=== PATIENT | male | born 1950 | race Two or more races ===

== ENCOUNTER 2023-12-03 18:19 | Inpatient (IN) | payer MEDICARE, OTHER, SELFPAY ==
[2023-12-03] VITALS (9 sets, daily range): BP systolic 85–137; BP diastolic 52–85; PULSE 60–62
[2023-12-03 14:40] LABS: ALT (SGPT) 14 U/L (0-50); AST (SGOT) 23 U/L (17-59); Albumin 3.5 g/dl (3.5-5.0); Alkaline Phosphatase 91 U/L (38-126); Blood Urea Nitrogen 30 mg/dl (9-20); Calcium 9.1 mg/dl (8.4-10.2); Carbon Dioxide 27 mmol/L (22-30); Chloride 101 mmol/L (98-107); Glucose 136 mg/dl (70-99); Hemoglobin 13.6 g/dL (13.0-18.0); Mean Corpuscular Hgb 30.1 pg (27.0-31.0); Mean Corpuscular Volume 88.5 fL (80.0-94.0); Mean Platelet Volume 9.8 fL (7.4-10.4); Platelet Count 222 10^3/uL (130-400); Potassium 4.2 mmol/L (3.5-5.1); Red Blood Cell Count 4.52 10^6/uL (4.70-6.10); Red Cell Dist. Width 13.9 % (11.5-14.5); Sodium 135 mmol/L (135-145); Total Bilirubin 1.4 mg/dl (0.2-1.3); Total Protein 6.1 g/dl (6.3-8.2); White Blood Cell Count 26.9 10^3/uL (4.8-10.8); eGFR > 60.00
[2023-12-03 14:43] LABS: % Basophils 0.2 % (0-2); % Lymphocytes 4.3 % (20.5-51.1); % Monocytes 7.6 % (1.7-9.3); % Neutrophils 86.9 % (42.2-75.2); Absolute Basophils 0.1 10^3/uL (0-0.2); Absolute Immature Granulocytes 0.3 10^3/uL (0-0.05); Absolute Lymphocytes 1.2 10^3/uL (1.2-3.4); Absolute Neutrophils 23.4 10^3/uL (1.4-6.5); Nucleated Red Blood Cells % 0 % (-)
--- NOTE | 2023-12-03 15:08 | ED.GENMED ---
History of Present Illness
<Ilya Johnson DO - Last Filed: 12/03/23 15:08>
General
Chief Complaint: Blood Pressure Problem
Time Seen by Provider: 12/03/23 15:06
<Octavio Pete PA-C - Last Filed: 12/03/23 17:35>
General
Source: patient
History of Present Illness
History of Present Illness:
73-year-old male presenting to the emergency department from urgent care for evaluation of shortness of breath, at the urgent care was found to have a blood pressure of 84/52. Patient states that other than the shortness of breath he feels okay.
He denies any chest pain, palpitations, diaphoresis, exertional dyspnea, orthopnea, fevers/chills or rigors, urinary symptoms or bowel changes. He states that his blood pressure is always usually little on the lower side but is unable to quantify
the exact normal blood pressure. He notes that he lives on his own, has a history of throat/mouth cancer and diet consists of mainly a liquid and pur�ed diet but has been eating and drinking his usual amounts. He also states that he has been
recently going to a bariatric chamber for care from his mouth/throat cancer at the request of his oncology team. Currently not undergoing any chemo or radiation.
Past History
<Octavio Pete PA-C - Last Filed: 12/03/23 17:35>
Past History
ED Past Medical History: Cancer
ED Past Surgical History: Bowel resection, Cardiac and Other
Review of Systems
<Octavio Pete PA-C - Last Filed: 12/03/23 17:35>
Review of Systems
All Other Systems: ROS reviewed and negative except as documented in HPI and ROS
Phy Exam
<TRISTEN Millan Last Filed: 12/03/23 17:35>
Physical Exam
Physical Exam:
GENERAL: Alert , in no apparent distress
Vital signs: Blood pressure rechecked and it was 129/54 during my exam
EYE: clear conjunctiva b/l
HEAD: NCAT
ENT: mmm.
CARDIAC: Regular rate and rhythm, paced rhythm on telemetry.
LUNGS: Clear breath sounds bilaterally, no acute respiratory distress, no wheezes/rales/rhonchi
ABDOMEN: Soft, without focal tenderness, no r/g, no cvat
NEUROLOGICAL: Alert and oriented
SKIN: Warm and dry, skin intact.
MUSCULOSKELETAL: No edema, well perfused.
PSYCH: Normal and appropriate interaction.
Scores
<Octavio Pete PA-C - Last Filed: 12/03/23 17:35>
Heart Failure Risk
Heart Failure Risk Score: Not Applicable
Heart Score for Chest Pain Patients
STEMI patient?: Not applicable
Withdrawal Assessment of Alcohol
Withdrawal Assessment Completed?: Not applicable
Course
<Ilya Johnson DO - Last Filed: 12/03/23 15:08>
Orders/Labs/Results
Orders:
Orders
12/03/23 14:11
CMP [Comprehensive Metabolic Panel] Urgent
Complete Blood Count/With Diff Urgent
12/03/23 15:14
0.9% Sodium Chloride 1000 ml [Nss] 2,500 ml IV NOW STA
12/03/23 15:15
CR Chest - 2 Views Urgent
Comment:
Reason For Exam: SOB, leukocytosis
12/03/23 15:19
Electrocardiogram (*1) Urgent
Reason for Study: Shortness of Breath
EKG- Treatment ONCE
Orthostatic VS- Treatment ONCE
12/03/23 15:23
COVID-19 Antigen Urgent
Source: Nasal Swab
Lactic Acid Q4H
Comment: CANCEL 2nd LACTIC ACID IF 1st LACTIC ACID IS LESS THAN 2
Troponin I Urgent
Blood Culture Urgent
RELL Source: Blood/Venous
Specimen Description:
12/03/23 15:31
Blood Culture Routine
RELL Source: Blood/Venous
Specimen Description:
12/03/23 16:15
Urinalysis Reflex To Culture Urgent
Date Specimen was Collected: 12/03/23
Time Specimen was Collected: 16:14
Urine Microscopic Reflex Cult Urgent
Urine Culture Urgent
RELL Source: U
Specimen Description:
Date Specimen was Collected: 12/03/23
Time Specimen was Collected: 16:14
12/03/23 17:15
Cefepime HCl [Maxipime] 2,000 mg IV NOW STA
12/03/23 17:29
Gentamicin Sulfate [Gentamicin] 160 mg 0.9% Sodium Chloride [Nss] 50 ml IV NOW
12/03/23 19:15
Lactic Acid Q4H
Comment: CANCEL 2nd LACTIC ACID IF 1st LACTIC ACID IS LESS THAN 2
Abnormal Lab Results
12/03/23 12/03/23
14:11 16:15
WBC 26.9 H 10^3/uL
(4.8-10.8)
RBC 4.52 L 10^6/uL
(4.70-6.10)
Abs Immat Gran (auto) 0.3 H 10^3/uL
(0-0.05)
Absolute Neuts (auto) 23.4 H 10^3/uL
(1.4-6.5)
Absolute Monos (auto) 2.0 H 10^3/uL
(0.1-0.6)
Immature Gran % 1.0 H %
(0-0.5)
Neutrophils % 86.9 H %
(42.2-75.2)
Lymphocytes % 4.3 L %
(20.5-51.1)
BUN 30 H mg/dl
(9-20)
Glucose 136 H mg/dl
(70-99)
Total Bilirubin 1.4 H mg/dl
(0.2-1.3)
Total Protein 6.1 L g/dl
(6.3-8.2)
Leukocyte Esterase Rfl 2+ A
(Negative)
Urine WBC (Reflex) 50-60 A /HPF
(0-5)
Urine Bacteria (Reflex) Few A
(Negative)
12/03/23 14:11
12/03/23 14:11
Vital Signs
Initial and Last Documented VS:
Initial Vital Signs
Temp Pulse Resp BP Pulse Ox
98.6 F 69 16 106/57 98
12/03/23 14:02 12/03/23 14:02 12/03/23 14:02 12/03/23 14:02 12/03/23 14:02
Last Documented Vital Signs
Temp Pulse Resp BP Pulse Ox
98.6 F 64 16 117/85 97
12/03/23 14:02 12/03/23 17:00 12/03/23 17:00 12/03/23 17:00 12/03/23 16:00
<Octavio Pete PA-C - Last Filed: 12/03/23 17:35>
Orders/Labs/Results
Orders:
Orders
12/03/23 14:11
CMP [Comprehensive Metabolic Panel] Urgent
Complete Blood Count/With Diff Urgent
12/03/23 15:14
0.9% Sodium Chloride 1000 ml [Nss] 2,500 ml IV NOW STA
12/03/23 15:15
CR Chest - 2 Views Urgent
Comment:
Reason For Exam: SOB, leukocytosis
12/03/23 15:19
Electrocardiogram (*1) Urgent
Reason for Study: Shortness of Breath
EKG- Treatment ONCE
Orthostatic VS- Treatment ONCE
12/03/23 15:23
COVID-19 Antigen Urgent
Source: Nasal Swab
Lactic Acid Q4H
Comment: CANCEL 2nd LACTIC ACID IF 1st LACTIC ACID IS LESS THAN 2
Troponin I Urgent
Blood Culture Urgent
RELL Source: Blood/Venous
Specimen Description:
12/03/23 15:31
Blood Culture Routine
RELL Source: Blood/Venous
Specimen Description:
12/03/23 16:15
Urinalysis Reflex To Culture Urgent
Date Specimen was Collected: 12/03/23
Time Specimen was Collected: 16:14
Urine Microscopic Reflex Cult Urgent
Urine Culture Urgent
RELL Source: U
Specimen Description:
Date Specimen was Collected: 12/03/23
Time Specimen was Collected: 16:14
12/03/23 17:15
Cefepime HCl [Maxipime] 2,000 mg IV NOW STA
12/03/23 17:29
Gentamicin Sulfate [Gentamicin] 160 mg 0.9% Sodium Chloride [Nss] 50 ml IV NOW
12/03/23 19:15
Lactic Acid Q4H
Comment: CANCEL 2nd LACTIC ACID IF 1st LACTIC ACID IS LESS THAN 2
Abnormal Lab Results
12/03/23 12/03/23
14:11 16:15
WBC 26.9 H 10^3/uL
(4.8-10.8)
RBC 4.52 L 10^6/uL
(4.70-6.10)
Abs Immat Gran (auto) 0.3 H 10^3/uL
(0-0.05)
Absolute Neuts (auto) 23.4 H 10^3/uL
(1.4-6.5)
Absolute Monos (auto) 2.0 H 10^3/uL
(0.1-0.6)
Immature Gran % 1.0 H %
(0-0.5)
Neutrophils % 86.9 H %
(42.2-75.2)
Lymphocytes % 4.3 L %
(20.5-51.1)
BUN 30 H mg/dl
(9-20)
Glucose 136 H mg/dl
(70-99)
Total Bilirubin 1.4 H mg/dl
(0.2-1.3)
Total Protein 6.1 L g/dl
(6.3-8.2)
Leukocyte Esterase Rfl 2+ A
(Negative)
Urine WBC (Reflex) 50-60 A /HPF
(0-5)
Urine Bacteria (Reflex) Few A
(Negative)
12/03/23 14:11
12/03/23 14:11
Vital Signs
Initial and Last Documented VS:
Initial Vital Signs
Temp Pulse Resp BP Pulse Ox
98.6 F 69 16 106/57 98
12/03/23 14:02 12/03/23 14:02 12/03/23 14:02 12/03/23 14:02 12/03/23 14:02
Last Documented Vital Signs
Temp Pulse Resp BP Pulse Ox
98.6 F 64 16 117/85 97
12/03/23 14:02 12/03/23 17:00 12/03/23 17:00 12/03/23 17:00 12/03/23 16:00
<Octavio Pete PA-C - Last Filed: 12/03/23 17:35>
MDM/Problems Addressed
Differential Diagnosis Includes:
Pneumonia, sepsis, PE, atypical ACS
MDM/Problems Addressed:
73-year-old male presenting to the emergency department from urgent care for evaluation of shortness of breath, found to be hypotensive. On arrival here and in triage patient still has hypotension with a blood pressure 106/57. During my exam this
was improved and now at a normal level. Labs have been initiated in triage and patient has a leukocytosis of almost 27,000. Patient has no other labs from this facility previously so unclear as to if this is a chronic issue. Given his
leukocytosis combined with his reported hypotension we will add on blood cultures, lactic acid, EKG, troponin, chest x-ray, check orthostatics and treat with sepsis fluid bolus. Disposition pending but would lean towards admission
Chronic conditions affecting care: Cancer
<Octavio Pete PA-C - Last Filed: 12/03/23 17:35>
*Pulse Oximetry
Patient hypoxic: no
*EKG
Interpreted by ED Provider?: Yes
Comparison EKG: no comparison EKG present
Heart Rate: 61
Rate: normal
Rhythm: av sequential
*Binder Layer Interpretation
Rate: normal
Rhythm: ventricular paced
*Critical Care Note
Total Time (30-74mins, 75-104mins- exclusive of procedures): Not Applicable
<Octavio Pete PA-C - Last Filed: 12/03/23 17:35>
Patient Management
Discussion with other providers: Hospitalist
Escalation/DeEscalation of care consider admission/obs:
Leukocytosis and prerenal azotemia on initial labs. Patient's lactic acid 1.7. Urinalysis was noted for 2+ leukocytes and 50-60 WBCs. Chest x-ray unremarkable. Orthostatics noted for hypotension when going from laying to sitting. Patient did
receive sepsis fluid bolus. Given his leukocytosis with what appears to be an acute urinary tract infection will admit. Maxipime and gentamicin ordered. Hospitalist team accepts for continued evaluation and treatment.
ED Attending Note
<Ilya Johnson DO - Last Filed: 12/03/23 15:08>
-
Portions of this chart may have been created with voice recognition software.� Occasional wrong word or��sound alike� substitutions may have occurred due to the inherent limitations of voice recognition software.
Discharge Plan
Departure
Patient Disposition: Admit
Date of Disposition: 12/03/23
Time of Disposition: 17:16
Presentation/result/management discussed w/ accepting MD/DO: Hospitalist
Discharge Problem:
Acute UTI, Sepsis
Prescriptions:
No Action
ibuprofen 800 mg Tablet
800 mg PO TID
gabapentin 300 mg Capsule
300 mg PO TID
lidocaine HCl 2 % Solution
1 applic MUCOUS MEMBRANE BIDPRN PRN (Reason: mild pain)
ferrous sulfate tablet
1 tab PO BID
Patient Comments:
12/03/23: Patient was unsure of dosage.
Referrals:
Jhon Blas MD [Family Provider] -
Interventions
Interventions:
*Risk Screen - Suicide Last Done: 12/03/23 15:14
*General Assessment Last Done: 12/03/23 14:02
*Neglect/Abuse Screening Last Done: 12/03/23 15:14
*ED COVID-19 Vaccine History Last Done: 12/03/23 14:02
ED- Cardiac Assessment Last Done: 12/03/23 15:14
ED- Neurological Assessment Last Done: 12/03/23 15:14
ED- Pulmonary Assessment Last Done: 12/03/23 15:14
Discharge Date and Time
Print Language: VIETNAMESE
[2023-12-03] MEDS: NSS 2500 ML IV (15:28)
[2023-12-03 15:55] LABS: Lactic Acid 1.7 mmol/L (0.7-2.0)
[2023-12-03 15:57] LABS: COVID-19 Antigen Negative (Negative)
[2023-12-03 16:07] LABS: Troponin I < 0.012 ng/ml
[2023-12-03 16:24] LABS: Urine Albumin Negative (Neg - Trace); Urine Bilirubin Negative (Negative); Urine Character Clear (Clear); Urine Color Yellow; Urine Glucose Negative (Negative); Urine Ketone Negative (Negative); Urine Leukocyte 2+ (Negative); Urine Nitrite Negative (Negative); Urine Occult Blood Negative (Negative); Urine Urobilinogen Negative (Neg - 1+)
[2023-12-03 17:13] LABS: Urine Bacteria Few (Negative); Urine Red Blood Cell 0-2 /HPF (0-2); Urine White Cell 50-60 /HPF (0-5)
[2023-12-03] MEDS: MAXIPIME 2000 MG IV (17:21)
--- NOTE | 2023-12-03 17:28 | HPS.HSE ---
Family Physician
-
Family Physician: Jhon Blas
Chief Complaint
-
Hypotension, shortness of breath, rigors, suprapubic tenderness, dysuria
History of Present Illness
73-year-old male sent by urgent care for evaluation of shortness of breath and hypotension 84/52. Patient reports having some lightheadedness on and off with standing shortness of breath with activity, episode of rigors with sweating last night and
then today having some suprapubic tenderness with dysuria. The patient lives on his own has history of throat and mouth cancer is on a liquid pur�e diet/soft states is drinking usual amounts. He does supplemental Premier protein 4 times a day. He
has completed 40 rounds of bariatric chamber care for mouth and throat CA . He has history of head and neck CA with resection/radiation 8 years ago. other past medical history includes bowel resection, pacemaker, AVR, colon cancer status post colon
resection/colostomy 15 years ago
Medical History
Past Medical History
Past Medical History: Reports Other
Additional Past Medical History:
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
-Completed 40 hyperbaric chamber treatments yesterday 12/02/2023
AVR
Colon cancer status post colon resection/colostomy
Pacemaker
Mouth and throat CA
Past Surgical History: Reports Other
Additional Past Surgical History:
Pacemaker 4 years ago [facility]
AVR 4 years ago [facility]
Colon cancer status post colon resection/colostomy 15 years ago
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
Social History
Tobacco: Smoker (Smoked from age [age])
Alcohol: None
Drug: None
Personal:
Living: Alone
Employment: Retired
Family History
Family History: Other (Father history of esophageal cancer mother natural causes)
Allergies / Home Medications
Allergies reflects when Allergies were last updated in [employer].
Home Medications with original date entered in [employer]
Allergy/Medication List:
Allergies
Allergy/AdvReac Type Severity Reaction Status Date / Time
No Known Allergies Allergy Verified 12/03/23 14:07
Home Medications
ferrous sulfate 1 tab PO BID 12/03/23
gabapentin 300 mg capsule 300 mg PO TID 12/03/23
ibuprofen 800 mg tablet 800 mg PO TID 12/03/23
lidocaine HCl 2 % mucosal solution 1 applic mucous membrane BIDPRN PRN mild pain 12/03/23
Review of Systems
-
History Source: Patient
A 12 point ROS was completed and negative except as noted: Yes
Constitutional: Reports Fever and Chills
EENT: Denies Sore Throat or Runny Nose
Respiratory: Reports Trouble Breathing (With activity); Denies Cough
Cardiac: Denies Chest Pain, Diaphoresis, Palpitations or Syncope
Abdomen/GI: Reports Abdominal Pain (Suprapubic); Denies Nausea, Vomiting, Diarrhea, Constipated, Bloody Stools or Black Stools
: Reports Dysuria; Denies Frequency, Flank Pain, Incontinence, Difficulty Voiding or Urgency
Musculoskeletal: Denies Joint Pain or Edema
Skin: Denies Itching or Rash
Neurological: Reports Dizzy; Denies Headache or Weakness
Endocrine: Reports No Symptoms
Hematologic/Lymphatic: Reports No Symptoms
Psych: Reports Calm
Physical Exam
Vital Signs
Vital Signs
Temp Pulse Resp BP Pulse Ox
98.6 F 64 16 117/85 97
12/03/23 14:02 12/03/23 17:00 12/03/23 17:00 12/03/23 17:00 12/03/23 16:00
Physical Exam
General: Comfortable and Conversant; No Pain, Fever or Chills
HEENT: NormoCephalic, Anicteric, PERRLA, Hitchcock Conjunctivae, No Ptosis and Other (Dry oral mucosa)
Respiratory: Clear; No Wheezes, Rales or Rhonchi
Cardiac: S1/S2 and Regular Rhythm; No Murmur, Rub, Gallop or Peripheral Edema
Breast: Deferred by me
GI: Soft, Non Distended, Normal Bowel Sounds, Tender (Suprapubic) and No Hepatosplenomegaly
Rectal: Deferred by Provider
Genito-urinary: No costovertebral tender
Musculoskeletal: No Clubbing, No Cyanosis and No Edema
Skin: Warm and Dry; No Rash or Jaundice
Neuro: AO x 3, No Motor Deficits, Nonfocal/grossly intact, Cranial Nerves Intact, No Sensory Deficits and Other (Has history of midline lower mandibular resection and resection right side of tongue with limited range of motion); No Slurred Speech,
Facial Droop or Tremors
Psych: Calm
Laboratory Results
-
12/03/23 14:11
12/03/23 14:11
Laboratory Results
Lactic Acid 1.7 mmol/L (0.7-2.0) 12/03/23 15:23
Total Bilirubin 1.4 mg/dl (0.2-1.3) H 12/03/23 14:11
AST 23 U/L (17-59) 12/03/23 14:11
ALT 14 U/L (0-50) 12/03/23 14:11
Alkaline Phosphatase 91 U/L (38-126) 12/03/23 14:11
Troponin I < 0.012 ng/ml 12/03/23 15:23
Data Reviewed
-
Diagnostic Radiology: Report Reviewed by me
Lab Data: Labs Reviewed by me
Impression/Plan
-
Impression/plan:
Admit to IMU
#Sepsis 2/2 symptomatic UTI
WBC 27 with left shift, 98.6, 84/52> 105/52
Symptoms of rigors, suprapubic tenderness and dysuria today
COVID�negative
-Follow urine culture
-Blood culture x 1
-IV Maxipime, single dose gentamicin given in ER
-Follow CBC, CMP
CXR: Negative
#Hypotension likely volume depletion
at urgent care > status post 2500 mL NSS
-Continue IV NSS 100 cc an hour
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
-Completed 40 hyperbaric chamber treatments yesterday 12/02/2023
-Continue ibuprofen 800 mg 3 times daily for chronic jaw pain
-Continue Ensure Enlive 4 times daily(patient typically does Premier protein 30 g 4 times daily at home along with soft foods)
-Mechanical soft diet with above supplementation
#Pacemaker 4 years ago [facility]
#AVR 4 years ago [facility]
#Colon cancer status post colon resection/colostomy 15 years ago
#Neuropathy bilateral feet
-Continue gabapentin 300 mg 3 times daily
DVT prophylaxis
Subcu Lovenox
Full code
[2023-12-03] MEDS: GENTAMICIN 54 MG IV (17:46)
--- NOTE | 2023-12-03 18:03 | W.PN.UPDATE ---
Update Note
Progress Note Update
This is an addendum to the H&P written by Sandra Melendez on 12/03/2023.� Patient seen and examined independently with [employer]ING [employer] MACHINE SETTER.
73-year-old male past medical history of throat/mouth cancer on hyperbaric therapy last received yesterday, history of UTIs, pacemaker, AVR,�presenting with shortness of breath with exertion since yesterday, low blood pressure 84/52 at urgent care
today and burning with urination with slight suprapubic tenderness.�
Labs show leukocytosis 26, urinalysis shows 50-60 WBC.� COVID-negative.� Chest x-ray unremarkable.� Check urine culture, blood cultures, IV fluids, ceftriaxone.
[2023-12-03] MEDS: NSS 1000 IV (19:41)
[2023-12-03] MEDS: LOVENOX 40 MG SC (19:42)
--- NOTE | 2023-12-03 21:08 | PTCARENOTE ---
Pt admitted to IMU at change of shift, presents oriented, cooperative. Pt reports soft, bite sized diet at home d/t lack of teeth. Reports good appetite, requesting something to eat. This RN provided applesauce, which pt was able to swallow without
complication. 100% V-paced on monitoring equipment, BPs >100 systolic with MAPs > 65. 97% on RA with clear lung sounds. CC #[id number] placed at pt request d/t urgency. NSS running at 100mls/hr through L AC IV, per MD order. Pt reports episodes of insomnia
while hospitalized in the past, requests sleep aid. This RN reached out to EDUCATION TRAINER to relay pt request.
[2023-12-03] MEDS: NEURONTIN 300 MG PO (21:58)
[2023-12-03] MEDS: MELATONIN 3 MG PO (21:58)
[2023-12-03] MEDS: MOTRIN 800 MG PO (21:58)
[2023-12-03] MEDS: ROCEPHIN 1000 MG IV (23:03)
[2023-12-03] MEDS: STERILE WATER FOR INJECTION 10 ML IV (23:03)
[2023-12-04] VITALS (16 sets, daily range): BP systolic 94–132; BP diastolic 49–71; PULSE 60–68; O2SAT 96–98; BMI 24.6
[2023-12-04] MEDS: NSS 1000 IV ×2 (05:11→14:35)
[2023-12-04 05:28] LABS: % Basophils 0.4 % (0-2); % Eosinophils 0.3 % (0-6); % Immature Granulocytes 0.5 % (0-0.5); % Lymphocytes 5.3 % (20.5-51.1); % Monocytes 6.5 % (1.7-9.3); Absolute Basophils 0.1 10^3/uL (0-0.2); Absolute Eosinophils 0.1 10^3/uL (0-0.7); Absolute Immature Granulocytes 0.1 10^3/uL (0-0.05); Absolute Lymphocytes 1.1 10^3/uL (1.2-3.4); Absolute Monocytes 1.3 10^3/uL (0.1-0.6); Absolute Neutrophils 17.8 10^3/uL (1.4-6.5); Hematocrit 35.3 % (39.0-52.0); Hemoglobin 12.2 g/dL (13.0-18.0); Mean Corp Hgb Conc. 34.6 g/dL (33.0-37.0); Mean Corpuscular Hgb 29.8 pg (27.0-31.0); Mean Corpuscular Volume 86.3 fL (80.0-94.0); Mean Platelet Volume 10.2 fL (7.4-10.4); Nucleated Red Blood Cells % 0 % (-); Platelet Count 213 10^3/uL (130-400); Red Blood Cell Count 4.09 10^6/uL (4.70-6.10); Red Cell Dist. Width 14.1 % (11.5-14.5); White Blood Cell Count 20.5 10^3/uL (4.8-10.8)
[2023-12-04 05:54] LABS: ALT (SGPT) 11 U/L (0-50); AST (SGOT) 20 U/L (17-59); Albumin 2.9 g/dl (3.5-5.0); Alkaline Phosphatase 83 U/L (38-126); Blood Urea Nitrogen 19 mg/dl (9-20); Calcium 8.4 mg/dl (8.4-10.2); Carbon Dioxide 28 mmol/L (22-30); Chloride 111 mmol/L (98-107); Glucose 98 mg/dl (70-99); Potassium 4.2 mmol/L (3.5-5.1); Sodium 141 mmol/L (135-145); Total Bilirubin 0.7 mg/dl (0.2-1.3); Total Protein 5.5 g/dl (6.3-8.2); eGFR > 60.00
[2023-12-04] MEDS: NEURONTIN 300 MG PO ×3 (07:49→21:21)
[2023-12-04] MEDS: MOTRIN 800 MG PO ×3 (07:49→21:21)
--- NOTE | 2023-12-04 08:00 | PTCARENOTE ---
Patient received from rn shift mgr. Patient resting comfortably in bed. AAO, VSS. No events noted overnight. No complaints of pain at this time. IVF through IV. BPs have been stable overnight. External catheter in place per patient request for
urgency. Possible downgrade. Call zee in reach.
--- NOTE | 2023-12-04 08:52 | W.PN.HOSP.TC ---
Addendum entered and electronically signed by Izaiah Rojas MD 12/04/23 09:11:
I saw and evaluated the patient. I reviewed the resident�s note and agree with findings and plan as documented in the resident�s note.
No new complaints.
Gen: NAD, Awake and alert
Eyes: EOMI, PERRLA, no scleral icterus.
Neck: supple.
CV: RRR, +S1/S2, no m/r/g.
Resp: CTAB, no rales, wheezes, or rhonchi.
Abd: +BS, soft, NT to light palpation, ND
Skin: No rashes.
Neuro: CN 2-12 intact, non-focal.
Psych: Normal mood and affect.
Sepsis due to acute urinary tract infection:
-Leukocytosis and left shift improving
-cont Rocephin
-follow UCx/BCxs
-with hypotension pt received 30cc/kg, now on maintenance IVFs, BP improving
Original Note:
Today's Communication/Plan
-
Continue ceftriaxone, monitor CBC
Assessment / Plan
Assessment / Plan
#Sepsis 2/2 symptomatic UTI
WBC 27 with left shift, 98.6, > 105/52
Symptoms of rigors, suprapubic tenderness and dysuria today
COVID�negative
-Urine and blood cultures pending
-single dose gentamicin given in ER
-Continue IV ceftriaxone
-Leukocytosis downtrending
#Hypotension likely volume depletion
84/52 at urgent care > 105/52 status post 2500 mL NSS
-Stabilized
-Continue IV NSS 100 cc an hour
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
-Completed 40 hyperbaric chamber treatments yesterday 12/02/2023
-Continue ibuprofen 800 mg 3 times daily for chronic jaw pain
-Continue Ensure Enlive 4 times daily(patient typically does Premier protein 30 g 4 times daily at home along with soft foods)
-Mechanical soft diet with above supplementation
#Pacemaker 4 years ago [facility]
#AVR 4 years ago [facility]
#Colon cancer status post colon resection/colostomy 15 years ago
#Neuropathy bilateral feet
-Continue gabapentin 300 mg 3 times daily
DVT prophylaxis
Subcu Lovenox
Anticipated Discharge: 24 - 48 hours
Subjective/Interval History
-
Date of Service: December 04, 2023
Pt feels a lot better than yesterday
Objective Data
-
Labs:
Laboratory Results
12/04/23
05:20
WBC 20.5 H
Hgb 12.2 L
Hct 35.3 L
Plt Count 213
Sodium 141
Potassium 4.2
Chloride 111 H
Carbon Dioxide 28
BUN 19
Creatinine 0.7
Glucose 98
Calcium 8.4
Total Bilirubin 0.7
AST 20
ALT 11
Alkaline Phosphatase 83
Vital Signs:
Vital Signs
Temp Pulse Resp BP Pulse Ox
97.3 F 61 14 127/58 99
12/04/23 03:58 12/04/23 08:00 12/04/23 08:00 12/04/23 08:00 12/04/23 08:00
I&O
12/03/23 12/04/23 12/05/23
06:59 06:59 06:59
Intake Total 240 / 240
Output Total 1050 / 1050
Balance -810 / -810
Review of Systems
-
History Source: Patient
Constitutional: Reports Fatigue
EENT: Reports No Symptoms Reported
Respiratory: Reports No Symptoms
Cardiac: Reports No Symptoms
Abdomen/GI: Reports No Symptoms
Genitourinary: Reports No Symptoms; Denies Dysuria or Frequency
Neuro: Reports No Symptoms; Denies Dizzy or Headache
Physical Exam
-
General: No Apparent Distress and Comfortable
Respiratory: Clear to Auscultation
Cardiac: Regular Rhythm and S1/S2
GI: Tender (Suprapubic tenderness)
Musculoskeletal: No Edema
Skin: Warm and Dry
Neuro: AO x 3
Psych: Calm
--- NOTE | 2023-12-04 13:12 | PTCARENOTE ---
Report called to Tess Romero RN
--- NOTE | 2023-12-04 14:14 | PTCARENOTE ---
Patient transported to via patient transport. Patient left with all known belongings.
--- NOTE | 2023-12-04 15:04 | CM ---
Patient seen bedside.
IA completed.
Patient lives alone in a 3rd floor apartment with elevator access.
Patient is independent and ambulates without assistive devices.
Patient drives, drove to the hospital.
Patient stated since oral surgery 8 yers ago he does not eat, he drinks shakes.
Hx VN after cancer surgery 8 years ago and rehab at [facility].
Patient denies home care needs at this time.
Plan: home no needs anticipated, patient will drive himself home.
[2023-12-04] MEDS: LOVENOX 40 MG SC (17:03)
[2023-12-04] MEDS: BENADRYL 25 MG PO (20:35)
[2023-12-04 21:11] LABS: Hepatitis C Antibody Negative (Negative)
[2023-12-04] MEDS: STERILE WATER FOR INJECTION 10 ML IV (23:12)
[2023-12-04] MEDS: ROCEPHIN 1000 MG IV (23:12)
[2023-12-04] MEDS: MELATONIN 5 MG PO (23:40)
[2023-12-05] MEDS: NSS 1000 IV (05:34)
[2023-12-05 06:51] LABS: % Basophils 0.5 % (0-2); % Eosinophils 1.4 % (0-6); % Immature Granulocytes 0.5 % (0-0.5); % Monocytes 7.1 % (1.7-9.3); % Neutrophils 84.5 % (42.2-75.2); Absolute Basophils 0.1 10^3/uL (0-0.2); Absolute Eosinophils 0.2 10^3/uL (0-0.7); Absolute Immature Granulocytes 0.1 10^3/uL (0-0.05); Absolute Lymphocytes 0.9 10^3/uL (1.2-3.4); Hematocrit 36.2 % (39.0-52.0); Hemoglobin 12.2 g/dL (13.0-18.0); Mean Corp Hgb Conc. 33.7 g/dL (33.0-37.0); Mean Corpuscular Hgb 29.4 pg (27.0-31.0); Mean Corpuscular Volume 87.2 fL (80.0-94.0); Mean Platelet Volume 10.3 fL (7.4-10.4); Nucleated Red Blood Cells % 0 % (-); Platelet Count 210 10^3/uL (130-400); Red Blood Cell Count 4.15 10^6/uL (4.70-6.10); Red Cell Dist. Width 14.2 % (11.5-14.5); White Blood Cell Count 14.2 10^3/uL (4.8-10.8)
[2023-12-05 07:15] LABS: ALT (SGPT) 13 U/L (0-50); AST (SGOT) 22 U/L (17-59); Albumin 2.9 g/dl (3.5-5.0); Alkaline Phosphatase 88 U/L (38-126); Blood Urea Nitrogen 11 mg/dl (9-20); Calcium 8.7 mg/dl (8.4-10.2); Carbon Dioxide 30 mmol/L (22-30); Chloride 108 mmol/L (98-107); Estimated Creatinine Clearance 100 ml/min; Glucose 85 mg/dl (70-99); Potassium 3.9 mmol/L (3.5-5.1); Sodium 144 mmol/L (135-145); Total Bilirubin 0.6 mg/dl (0.2-1.3); Total Protein 5.4 g/dl (6.3-8.2); eGFR > 60.00
[2023-12-05 08:07] VITALS: BP 123/61
[2023-12-05] MEDS: NEURONTIN 300 MG PO ×3 (08:31→21:07)
[2023-12-05] MEDS: MOTRIN 800 MG PO ×3 (08:32→21:07)
--- NOTE | 2023-12-05 09:21 | W.PN.HOSP.TC ---
Addendum entered and electronically signed by Izaiah Rojas MD 12/05/23 10:11:
I saw and evaluated the patient. I reviewed the resident�s note and agree with findings and plan as documented in the resident�s note.
No new complaints.
Gen: NAD, Awake and alert
Eyes: EOMI, PERRLA, no scleral icterus.
Neck: supple.
CV: remains RRR, +S1/S2, no m/r/g.
Resp: remains CTAB, no rales, wheezes, or rhonchi.
Abd: +BS, soft, NT, ND
Skin: No rashes.
Neuro: CN 2-12 intact, non-focal.
Psych: Normal mood and affect.
12/03/23 15:31 Blood/Venous Blood Culture - Preliminary
No Growth in 24 hours- Final report to follow
12/03/23 15:23 Blood/Venous Blood Culture - Preliminary
No Growth in 24 hours- Final report to follow
12/03/23 16:15 Urine Urine Culture - Final
No Significant Growth
Sepsis due to acute urinary tract infection:
-interesting that UCx NEG as rest of presentation, clinical picture and response to treatment consistent with UTI
-Leukocytosis and left shift cont to improve
-cont Rocephin
-with hypotension pt received 30cc/kg, then on maintenance IVFs, BP improved
-stop IVFs
-SRIRAM, POA, now resolved
Pt's family updated at bedside. Plan for d/c tomorrow on PO abx.
Original Note:
Today's Communication/Plan
-
d/c fluids, continue Rocephin and monitor WBC
Assessment / Plan
Assessment / Plan
#Sepsis 2/2 symptomatic UTI
WBC 27 with left shift, 98.6, 84/52> 105/52
Symptoms of rigors, suprapubic tenderness and dysuria today
COVID�negative
-Urine and blood negative
-single dose gentamicin given in ER
-Leukocytosis downtrending at 14.15
-Continue IV ceftriaxone
#Hypotension likely volume depletion
84/52 at urgent care > 105/52 status post 2500 mL NSS
-BP stable and oral intake good
-d/c fluids
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
-Completed 40 hyperbaric chamber treatments yesterday 12/02/2023
-Continue ibuprofen 800 mg 3 times daily for chronic jaw pain
-Continue Ensure Enlive 4 times daily(patient typically does Premier protein 30 g 4 times daily at home along with soft foods)
-Mechanical soft diet with above supplementation
#Pacemaker 4 years ago [facility]
#AVR 4 years ago [facility]
#Colon cancer status post colon resection/colostomy 15 years ago
#Neuropathy bilateral feet
-Continue gabapentin 300 mg 3 times daily
DVT prophylaxis
Subcu Lovenox
Anticipated Discharge: Within 24 hours
Subjective/Interval History
-
Date of Service: December 05, 2023
Patient still feels weak, but significantly better. Wants to go home.
Objective Data
-
Labs:
Laboratory Results
12/05/23
04:54
WBC 14.2 H
Hgb 12.2 L
Hct 36.2 L
Plt Count 210
Sodium 144
Potassium 3.9
Chloride 108 H
Carbon Dioxide 30
BUN 11
Creatinine 0.7
Glucose 85
Calcium 8.7
Total Bilirubin 0.6
AST 22
ALT 13
Alkaline Phosphatase 88
Vital Signs:
Vital Signs
Temp Pulse Resp BP Pulse Ox
97.5 F 73 18 123/61 96
12/05/23 08:07 12/05/23 08:07 12/05/23 08:07 12/05/23 08:07 08/22/24 08:07
I&O
12/04/23 12/05/23 12/06/23
06:59 06:59 06:59
Intake Total 240 / 240 1440 / 1440
Output Total 1050 / 1050 1290 / 1290
Balance -810 / -810 150 / 150
Review of Systems
-
History Source: Patient
Constitutional: Reports Fatigue and Weakness
Respiratory: Reports No Symptoms
Cardiac: Reports No Symptoms
Abdomen/GI: Reports No Symptoms
Genitourinary: Reports No Symptoms
Neuro: Reports Weakness
Physical Exam
-
General: No Apparent Distress
Respiratory: Clear to Auscultation
Cardiac: Regular Rhythm and S1/S2
GI: Soft, Nontender (No more suprapubic tenderness) and Nondistended
Musculoskeletal: No Edema
Skin: Warm and Dry
Neuro: AO x 3
Psych: Calm
[2023-12-05] MEDS: NSS IV (11:18)
[2023-12-05 12:08] VITALS: BP 118/53; PULSE 64; O2SAT 99
--- NOTE | 2023-12-05 12:13 | PTOTSP ---
Pt is feeling better and is able to ambulate independently with steady gait, without need for any assistive devices. PT will sign off.
--- NOTE | 2023-12-05 13:07 | CM ---
CM continues to follow; anticipate discharge to home tomorrow with plan for oral ABX.
Plan: Pt to return home with no needs; Suzan will drive himself home.
[2023-12-05 15:49] VITALS: BP 161/69
[2023-12-05] MEDS: LOVENOX 40 MG SC (17:15)
[2023-12-05] MEDS: BENADRYL 25 MG PO (21:08)
[2023-12-05 23:00] VITALS: BP 151/72
[2023-12-05] MEDS: ROCEPHIN 1000 MG IV (23:22)
[2023-12-05] MEDS: STERILE WATER FOR INJECTION 10 ML IV (23:22)
[2023-12-06] MEDS: MELATONIN 5 MG PO (00:05)
[2023-12-06 05:10] LABS: % Basophils 0.5 % (0-2); % Eosinophils 3.4 % (0-6); % Immature Granulocytes 0.3 % (0-0.5); % Lymphocytes 9.6 % (20.5-51.1); % Monocytes 11.3 % (1.7-9.3); % Neutrophils 74.9 % (42.2-75.2); Absolute Basophils 0.1 10^3/uL (0-0.2); Absolute Eosinophils 0.3 10^3/uL (0-0.7); Absolute Lymphocytes 0.9 10^3/uL (1.2-3.4); Absolute Monocytes 1.1 10^3/uL (0.1-0.6); Absolute Neutrophils 7.2 10^3/uL (1.4-6.5); Hematocrit 36.5 % (39.0-52.0); Hemoglobin 12.4 g/dL (13.0-18.0); Mean Corpuscular Volume 88.4 fL (80.0-94.0); Nucleated Red Blood Cells % 0 % (-); Platelet Count 205 10^3/uL (130-400); Red Blood Cell Count 4.13 10^6/uL (4.70-6.10); White Blood Cell Count 9.6 10^3/uL (4.8-10.8)
[2023-12-06 05:32] LABS: ALT (SGPT) 16 U/L (0-50); AST (SGOT) 24 U/L (17-59); Albumin 2.9 g/dl (3.5-5.0); Alkaline Phosphatase 85 U/L (38-126); Blood Urea Nitrogen 9 mg/dl (9-20); Carbon Dioxide 34 mmol/L (22-30); Chloride 107 mmol/L (98-107); Estimated Creatinine Clearance 100 ml/min; Glucose 91 mg/dl (70-99); Sodium 145 mmol/L (135-145); Total Bilirubin 0.5 mg/dl (0.2-1.3); Total Protein 5.5 g/dl (6.3-8.2); eGFR > 60.00
[2023-12-06 07:30] VITALS: BP 145/71
[2023-12-06] MEDS: NEURONTIN 300 MG PO (08:53)
[2023-12-06] MEDS: MOTRIN 800 MG PO (08:53)
[2023-12-06] MEDS: MIRALAX 17 GRAMS PO (09:04)
--- NOTE | 2023-12-06 09:43 | W.PN.HOSP.TC ---
Addendum entered and electronically signed by Izaiah Rojas MD 12/06/23 10:29:
I saw and evaluated the patient. I reviewed the resident�s note and agree with findings and plan as documented in the resident�s note.
Patient reports some chest pain upon awakening this morning that has resolved. He states this is an ongoing/chronic problem.
Gen: NAD, Awake and alert
Eyes: EOMI, PERRLA, no scleral icterus.
Neck: supple.
CV: continues to remain RRR, +S1/S2, no m/r/g.
Resp: continues to remain CTAB, no rales, wheezes, or rhonchi.
Abd: +BS, soft, NT, ND
Skin: No rashes.
Neuro: remains CN 2-12 intact, non-focal.
Psych: Normal mood and affect.
Sepsis due to acute urinary tract infection:
-interesting that UCx NEG as rest of presentation, clinical picture and response to treatment consistent with UTI
-Leukocytosis has resolved
-stop Rocephin, transition to Bactrim DS to complete 7 days total of antibioitic therapy
-with hypotension pt received 30cc/kg, then on maintenance IVFs, BP improved, now off IVFs
-SRIRAM, POA, now resolved
Medically cleared for d/c.
Total time spent on d/c = 31 min. This included today's physical exam, progress note, review of laboratory and diagnostic data, preparation of discharge documents and prescriptions, and discussions about the pt's hospital course and discharge plan
with the patient and other medical front desk specialist involved in the patient's care.
Original Note:
Today's Communication/Plan
-
Discharge on oral antibiotics
Assessment / Plan
Assessment / Plan
#Sepsis 2/2 symptomatic UTI
WBC 27 with left shift, 98.6, 84/52> 105/52
Symptoms of rigors, suprapubic tenderness and dysuria today
COVID�negative
-Urine and blood negative
-single dose gentamicin given in ER
-Leukocytosis resolved
-Discharge today on PO antibiotics
#Hypotension likely volume depletion
84/52 at urgent care > 105/52 status post 2500 mL NSS
-BP stable and oral intake good
-d/c fluids
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
-Completed 40 hyperbaric chamber treatments yesterday 12/02/2023
-Continue ibuprofen 800 mg 3 times daily for chronic jaw pain
-Continue Ensure Enlive 4 times daily(patient typically does Premier protein 30 g 4 times daily at home along with soft foods)
-Mechanical soft diet with above supplementation
#Pacemaker 4 years ago [facility]
#AVR 4 years ago [facility]
#Colon cancer status post colon resection/colostomy 15 years ago
#Neuropathy bilateral feet
-Continue gabapentin 300 mg 3 times daily
DVT prophylaxis
Subcu Lovenox
Anticipated Discharge: Today
Subjective/Interval History
-
Date of Service: December 06, 2023
Objective Data
-
Labs:
Laboratory Results
12/06/23
04:48
WBC 9.6
Hgb 12.4 L
Hct 36.5 L
Plt Count 205
Sodium 145
Potassium 4.0
Chloride 107
Carbon Dioxide 34 H
BUN 9
Creatinine 0.7
Glucose 91
Calcium 9.0
Total Bilirubin 0.5
AST 24
ALT 16
Alkaline Phosphatase 85
Vital Signs:
Vital Signs
Temp Pulse Resp BP Pulse Ox
97.9 F 69 18 145/71 96
12/06/23 07:30 12/06/23 07:30 12/06/23 07:30 12/06/23 07:30 12/06/23 07:30
I&O
12/05/23 12/06/2324
06:59 06:59 06:59
Intake Total 1440 / 1440 680 / 680
Output Total 1290 / 1290
Balance 150 / 150 680 / 680
Review of Systems
-
History Source: Patient
Constitutional: Reports No Symptoms
Respiratory: Reports No Symptoms
Cardiac: Reports No Symptoms
Abdomen/GI: Reports No Symptoms
Genitourinary: Reports No Symptoms
Musculoskeletal: Reports No Symptoms
Neuro: Reports No Symptoms
Physical Exam
-
General: Well Developed, Well Nourished and No Apparent Distress
Respiratory: Clear to Auscultation
Cardiac: Regular Rhythm and S1/S2
GI: Soft, Nontender and Nondistended
Musculoskeletal: No Edema
Skin: Warm and Dry
Neuro: AO x 3
Psych: Calm
[2023-12-06] MEDS: BACTRIM DS 800 MG/160 MG 1 TABLET PO (10:07)
[2023-12-06 11:05] VITALS: BP 111/51
--- NOTE | 2023-12-06 11:35 | CM ---
CM met with Mr. Costello this am. He is looking forward to going home and will drive himself. 2nd IMM reviewed in preparation for discharge. Pt agreeable to d/c today.
He has been in touch with his pharmacy and made arrangements for them to be delivered to his home.
Plan: Discharge to home with no needs.
--- NOTE | 2023-12-06 14:05 | PN.CDI ---
CDI
- -
CDI:
Physician Documentation Request
Admit Date: 12/03/23 18:19
Dear Doctor Diandra,
Patient admitted with sepsis due to UTI
Progress notes include a diagnosis of SRIRAM.
Creatinine results:
Laboratory Tests
12/03/23 12/04/23 12/05/23
14:11 05:20 04:54
Creatinine 1.1 0.7 0.7
12/06/23
04:48
Creatinine 0.7
Criteria for SRIRAM*
1 Increase in serum creatinine by > or = to 0.3 mg/dL (> or = to 26.5 micromol/L) within 48 hours, OR
2 Increase in serum creatinine to > or = to 1.5 times baseline, which is known or presumed to have occurred within 7 days, OR
3 Urine volume < 0.5 nL/kg/hour for six hours
Based on the above information and the recognized standard for SRIRAM could you please verify this diagnoses is still accurate and reflective of the patient�s condition to ensure quality of the medical record.
Please clarify in the Progress Notes:
�SRIRAM is/was present and is a clinical diagnosis based on (please include this additional support in the medical record)
�After study SRIRAM has been ruled out
�Other
Use of terms such as suspected, likely, concern for, or probable (associated with a specific diagnosis that is being evaluated, monitored, or treated as if it exists) are acceptable and can be coded in the inpatient setting, when documented at the
time of discharge.
Thank you,
Ashley Ramos RN, BSN
CDI Specialist
tiger text
Please use your independent medical judgment in providing your response.
--- NOTE | 2023-12-06 16:11 | W.DCSUMMARY ---
Addendum entered and electronically signed by Izaiah Rojas MD 12/06/23 16:54:
Read, reviewed, and agree. See same day progress note for additional details.
Original Note:
Discharge Summary
Discharge Data
Date of Admission: 12/03/23
Date of Discharge: 12/06/23
-
Pending Results: No
Hospital Course
Primary diagnosis:
Sepsis secondary to urinary tract infection
Secondary diagnosis:
Throat/mouth cancer with chronic jaw pain
Pacemaker
Aortic valve replacement
Colon cancer status post colon resection
Bilateral feet neuropathy
Hospital course:
Suzan Irwin) is a 73-year-old male who presented to the ED on 12/03/23 with shortness of breath and hypotension. He was previously evaluated by urgent care and was found to have a BP of 84/52. Patient was advised to go to ED. He had episodes of
rigors and chills along with some suprapubic tenderness with dysuria. In the ED, BP 106/57, temperature 98.6, WBC 26, UA shows 50-60 white blood cells, leukocyte Estrace positive, COVID-negative, chest ray unremarkable. Patient was admitted for
sepsis secondary to UTI due to low blood pressure and elevated WBC. Blood and urine cultures were sent out and he was started on fluids and cefepime in the ED. On admission, patient started on maintenance fluids and switched to ceftriaxone. The
next day, WBC 20.5. Patient still reported some suprapubic tenderness. Patient continued on fluids and antibiotics. On 12/04 WBC 14.2. Urine cultures came back with no significant growth. Fluids discontinued as antibiotics continued. On 12/05 WBC
9.6. Preliminary blood culture showed no growth.
Today, patient is clinically stable. Vitals are stable. WBC 9.6. Patient feeling significantly better and ready to go home. Patient patient discharged on 7 days of Bactrim and recommendations to follow-up with PCP in less than a week.
Discharge Plan
-
Patient Disposition: Home (Routine Discharge)
Discharge Diagnosis/Procedures: Sepsis due to acute urinary tract infection, hypotension
Condition: Good
Diet: As tolerated
Activity: As tolerated
Driving Restrictions: As prior to admission
Bathing Restrictions: None
Referrals:
Jhon Blas MD [Family Provider] - in less than 1 week
Prescriptions:
New
sulfamethoxazole-trimethoprim [Bactrim] 400-80 mg tablet
1 tab PO BID Qty: 14 0RF
Continued
ibuprofen 800 mg Tablet
800 mg PO TID
gabapentin 300 mg Capsule
300 mg PO TID
lidocaine HCl 2 % Solution
1 applic MUCOUS MEMBRANE BIDPRN PRN (Reason: mild pain)
ferrous sulfate tablet
1 tab PO BID
Patient Comments:
12/03/23: Patient was unsure of dosage.
Discharge Orders:
Discharge Patient (As Directed); Ordered 12/06/23
Ordered By: Izaiah Rojas
Discharge Date and Time
Discharge Date/Time: 12/06/23 13:00
Print Language: FRISIAN
== END 2023-12-06 13:00 | disposition home or self-care (01) | DRG 872 ==
LOC: 4 EAST ACU 18:19
PROVIDERS: Clinical Nurse Specialist Family Health; Emergency Medicine; Physician Assistant Medical; ADMITTING PHYSICIAN Hospitalist; ATTENDING PHYSICIAN Internal Medicine; EMERGENCY PHYSICIAN Emergency Medicine; FAMILY PHYSICIAN Internal Medicine Cardiovascular Disease
DX: A41.9 Sepsis, unspecified organism (principal); N39.0 Urinary tract infection, site not specified; N17.9 Acute kidney failure, unspecified; Z95.2 Presence of prosthetic heart valve; I95.9 Hypotension, unspecified; G62.9 Polyneuropathy, unspecified; R06.02 Shortness of breath; G89.29 Other chronic pain; R68.84 Jaw pain; Z79.899 Other long term (current) drug therapy; Z85.819 Personal history of malignant neoplasm of unspecified site of lip, oral cavity, and pharynx; Z92.3 Personal history of irradiation; Z85.038 Personal history of other malignant neoplasm of large intestine; Z90.49 Acquired absence of other specified parts of digestive tract; Z87.891 Personal history of nicotine dependence; Z95.0 Presence of cardiac pacemaker; Z80.0 Family history of malignant neoplasm of digestive organs; Z11.52 Encounter for screening for COVID-19
CPT/HCPCS: 71046; 80053; 81003; 81015; 83605; 84484; 85025; 86803; 87040; 87086; 87811; 93005; 96361; 96374; 96375; 97116; 97163; 97166; 97530; 99285

== ENCOUNTER → 2024-11-04 07:30 | Outpatient (REF) | payer MEDICARE, OTHER, SELFPAY | LOC: RAD 07:30 | PROVIDERS: ATTENDING PHYSICIAN Family Medicine; FAMILY PHYSICIAN Family Medicine | DX: L03.211 Cellulitis of face (principal) | CPT/HCPCS: 70487; Q9967 ==

== ENCOUNTER → 2025-01-18 15:29 | Outpatient (REF) | payer MEDICARE, OTHER, SELFPAY | LOC: HWRAD 15:29 | PROVIDERS: ATTENDING PHYSICIAN Family Medicine | DX: R05.1 Acute cough (principal) | CPT/HCPCS: 71046 ==

== ENCOUNTER → 2025-02-17 13:27 | Outpatient (REF) | payer MEDICARE, OTHER, SELFPAY | LOC: MRI 13:27 | PROVIDERS: ATTENDING PHYSICIAN Internal Medicine Infectious Disease; FAMILY PHYSICIAN Family Medicine | DX: M86.48 Chronic osteomyelitis with draining sinus, other site (principal) | CPT/HCPCS: 70543; 76014; 76015; A9575 ==

== ENCOUNTER → 2025-03-22 10:20 | Outpatient (REF) | payer MEDICARE, OTHER, SELFPAY ==
[2025-03-22 10:55] VITALS: BP 172/77; BP_SYST 62
[2025-03-22 11:32] VITALS: BP 164/72; BP_SYST 62
[2025-03-22 12:03] VITALS: BP 164/72
== END ==
LOC: RADI 10:20
PROVIDERS: ATTENDING PHYSICIAN Internal Medicine Infectious Disease
DX: M86.48 Chronic osteomyelitis with draining sinus, other site (principal)
CPT/HCPCS: 36573